=== PATIENT | female | born 1955 | race Caucasian/White ===

== ENCOUNTER 2021-03-31 15:22 | Emergency (ER) | payer BC ==
--- NOTE | 2021-03-31 17:45 | ED ---
General Adult HPI - General Chief complaint: Upper Respiratory Infection Stated complaint: Covid positive wants BAM Source: patient Mode of arrival: ambulatory Limitations: no limitations - History of Present Illness Initial comments: 65-year-old female with past medical history of hypertension and hyperlipidemia presents to the emergency department requesting antibody infusion. She was exposed to a Covid positive family member on . She had Covid testing performed on Friday and it was positive. She states that she did not develop symptoms until Friday. She has mild nasal congestion, cough. Denies chest pain. Continues to have a good appetite. No shortness of breath. Patient is not Covid vaccinated. No previous history of pulmonary or cardiac issues. No other alleviating, precipitating or modifying factors - Related Data Allergies Allergy/AdvReac Type Severity Reaction Status Date / Time Latex, Natural Rubber Allergy Unknown Verified 03/31/21 16:47 Review of Systems ROS Statement: Those systems with pertinent positive or pertinent negative responses have been documented in the HPI. ROS Other: All systems not noted in ROS Statement are negative. Past Medical History Past Medical History: Hyperlipidemia, Hypertension History of Any Multi-Drug Resistant Organisms: None Reported Past Surgical History: Hysterectomy Past Psychological History: No Psychological Hx Reported Smoking Status: Never smoker Past Alcohol Use History: None Reported Past Drug Use History: None Reported General Exam Limitations: no limitations General appearance: alert, in no apparent distress Head exam: Present: atraumatic, normocephalic, normal inspection Eye exam: Present: normal appearance, PERRL, EOMI. Absent: scleral icterus, conjunctival injection, periorbital swelling ENT exam: Present: normal exam, mucous membranes moist Neck exam: Present: normal inspection. Absent: tenderness, meningismus, lymphadenopathy Respiratory exam: Present: normal lung sounds bilaterally. Absent: respiratory distress, wheezes, rales, rhonchi, stridor Cardiovascular Exam: Present: regular rate, normal rhythm, normal heart sounds. Absent: systolic murmur, diastolic murmur, rubs, gallop, clicks GI/Abdominal exam: Present: soft, normal bowel sounds. Absent: distended, tenderness, guarding, rebound, rigid Extremities exam: Present: normal inspection, full ROM, normal capillary refill. Absent: tenderness, pedal edema, joint swelling, calf tenderness Back exam: Present: normal inspection Neurological exam: Present: alert, oriented X3, CN II-XII intact Psychiatric exam: Present: normal affect, normal mood Skin exam: Present: warm, dry, intact, normal color. Absent: rash Course Vital Signs 03/31/21 03/31/21 16:44 20:20 Temperature 98.6 F 97.4 F L Pulse Rate 97 77 Respiratory 16 18 Rate Blood Pressure 108/70 128/78 O2 Sat by Pulse 97 97 Oximetry Medical Decision Making - Medical Decision Making Upon arrival the patient's placed into room 13. Patient maintaining saturations around 97% with no increased work of breathing. IV is established patient is given Regen. Patient is watched for one hour without issues. Patient will be discharged home and is instructed to follow up with her primary care physician. Return to the emergency room if any new or worsening symptoms. Patient is discharged home in stable condition Disposition Clinical Impression: COVID-19 Disposition: HOME SELF-CARE Condition: Stable Instructions (If sedation given, give patient instructions): Coronavirus Disease 2019 (COVID-19) Additional Instructions: Please follow up with your primary care doctor within 2-4 days. Return to the emergency room for any new or worsening symptoms. Is patient prescribed a controlled substance at d/c from ED?: No Referrals: Lainey Carrasco MD [Primary Care Provider] - 1-2 days Time of Disposition: 17:50
[2021-03-31] MEDS ORDERED: SODIUM CHLORIDE 0.9% 50 ML IVPB ONE (18:30)
[2021-03-31] MEDS ORDERED: SOTROVIMAB (EUA) 500 MG in SODIUM CHLORIDE 0.9% 100 ML IVPB ONE (18:30)
[2021-03-31 20:26] VITALS: BP 128/78; PULSE 77; RESP 18; TEMP 97.4
== END 2021-03-31 20:22 | disposition home or self-care (01) ==
LOC: EC 15:22
DX: U07.1 COVID-19 (principal); I10 Essential (primary) hypertension; Z91.040 Latex allergy status
CPT/HCPCS: 99283; Q0247